=== PATIENT | male | born 1975 | race Asian ===

== ENCOUNTER 2017-12-16 14:34 | Emergency (ER) | payer BC ==
[~2017-12-16] VITALS: Ht 182.9 cm; Wt 113.6 kg
[~2017-12-16 14:34] MED LIST: AMBIEN 10MG10 MG; ATIVAN 0.50.5 MG/TAB; NORCO 325 MG-51 TAB; PROZAC40 MG; ROXICODONE 55 MG/TAB PO
[2017-12-16 14:38] VITALS: BP 141/88; TEMP 98.8
[2017-12-16 15:30] VITALS: PULSE 71
== END 2017-12-16 15:31 | disposition home or self-care (01) ==
LOC: COL.ER 14:34
DX: L02.31 Cutaneous abscess of buttock (principal); F17.210 Nicotine dependence, cigarettes, uncomplicated; Z88.0 Allergy status to penicillin; Z98.890 Other specified postprocedural states

== ENCOUNTER 2017-12-19 19:07 | Emergency (ER) | payer BC ==
[~2017-12-19] VITALS: Ht 182.9 cm; Wt 113.6 kg
[2017-12-19 19:10] VITALS: BP 138/89; TEMP 100.1
[2017-12-19] MEDS ORDERED: DOXYCYCLINE 10100 MG PO (19:54)
[2017-12-19 20:01] VITALS: PULSE 76
== END 2017-12-19 20:02 | disposition home or self-care (01) ==
LOC: COL.ER 19:07
DX: L02.31 Cutaneous abscess of buttock (principal); F17.210 Nicotine dependence, cigarettes, uncomplicated; Z87.39 Personal history of other diseases of the musculoskeletal system and connective tissue

== ENCOUNTER → 2020-03-04 | Outpatient (CLI) | payer OTHER ==
[~2020-03-04] MED LIST changes: +DOXYCYCLINE 10100 MG PO
== END ==
LOC: COL.RAD 11:29
DX: Z02.71 Encounter for disability determination (principal); M51.36 Other intervertebral disc degeneration, lumbar region; M47.816 Spondylosis without myelopathy or radiculopathy, lumbar region

== ENCOUNTER 2020-11-10 19:37 | Emergency (ER) | payer SELFPAY ==
[~2020-11-10] VITALS: Ht 182.9 cm; Wt 116.4 kg
[2020-11-10 19:45] VITALS: TEMP 97.3
[2020-11-10] MEDS ORDERED: NAPROSYN500 MG PO (21:35)
[2020-11-10] MEDS ORDERED: FLEXERIL 1010 MG/TAB PO (21:35)
[2020-11-10 22:03] VITALS: BP 131/74; PULSE 74
== END 2020-11-10 22:03 | disposition home or self-care (01) ==
LOC: COL.ER 19:37
DX: M54.5 Low back pain (principal); F41.9 Anxiety disorder, unspecified; G89.29 Other chronic pain; F17.200 Nicotine dependence, unspecified, uncomplicated; Z88.0 Allergy status to penicillin
CPT/HCPCS: J1885; J3360

== ENCOUNTER → 2020-11-21 | Outpatient (CLI) | payer SELFPAY ==
[~2020-11-21] MED LIST changes: +FLEXERIL 1010 MG/TAB PO; +NAPROSYN500 MG PO
== END ==
LOC: COL.RAD 07:05
DX: M54.5 Low back pain (principal)

== ENCOUNTER → 2020-12-06 | Outpatient (CLI) | payer SELFPAY | LOC: COL.RAD 13:48 | DX: M47.816 Spondylosis without myelopathy or radiculopathy, lumbar region (principal); M48.061 Spinal stenosis, lumbar region without neurogenic claudication; M51.26 Other intervertebral disc displacement, lumbar region ==